=== PATIENT | female | born 2000 | race Caucasian/White ===

== ENCOUNTER 2019-01-02 18:04 | Emergency (ER) | payer OTHER ==
[2019-01-02] MEDS ORDERED: Albuterol 2.5 MG/3 ML NEB.SOL* (0.083%) INH ONE (19:42)
--- NOTE | 2019-01-02 19:48 | UC ---
Respiratory Complaint HPI - HPI Summary HPI Summary: 18-year-old female comes in with a chief complaint of difficulty taking a deep breath and feeling short of breath for 5 days. No wheezing. No upper respiratory tract infection symptoms. No calf pain no calf swelling.. No recent travel a prior history of DVT or pulmonary embolus. She does use a JUUL VAPE. She does feel some sternal pain is worse with palpation of her sternum. Patient reports occasional GERD symptoms but only when she's eating. Denies any GERD symptoms when she's waking up in the morning. - History of Current Complaint Chief Complaint: UCRespiratory Stated Complaint: CHEST CONGESTION Time Seen by Provider: 01/02/19 19:34 Hx Last Menstrual Period: IUD in place Pain Intensity: 0 - Allergies/Home Medications Allergies/Adverse Reactions: Allergies Allergy/AdvReac Type Severity Reaction Status Date / Time No Known Allergies Allergy Verified 01/02/19 18:39 Home Medications: Home Medications hydrOXYzine HCL TAB* [Atarax TAB 50 MG *] 50 mg PO DAILY 01/02/19 [History Confirmed 01/02/19] lamoTRIgine TAB(*) [LaMICtal TAB(*)] 200 mg PO DAILY 01/02/19 [History Confirmed 01/02/19] PMH/Surg Hx/FS Hx/Imm Hx Previously Healthy: Yes - Surgical History Surgical History: None - Family History Known Family History: Positive: Non-Contributory - Social History Alcohol Use: Weekly Substance Use Type: Marijuana Substance Use Comment - Amount & Last Used: occasionally Smoking Status (MU): Current Some Day Smoker Type: eCigarettes Review of Systems All Other Systems Reviewed And Are Negative: Yes Constitutional: Positive: Other - SEE HPI Skin: Positive: Negative Eyes: Positive: Negative ENT: Positive: Negative Respiratory: Positive: Shortness Of Breath, Other - SEE HPI Cardiovascular: Positive: Chest Pain - SEE HPI Gastrointestinal: Positive: Negative Motor: Positive: Negative Neurovascular: Positive: Negative Musculoskeletal: Negative: Calf Tenderness, Edema Neurological: Positive: Negative Psychological: Positive: Negative Is Patient Immunocompromised?: No Physical Exam Triage Information Reviewed: Yes Appearance: Well-Appearing, No Pain Distress, Well-Nourished Vital Signs: Initial Vital Signs Temp 98.7 F 01/02/19 18:33 Pulse 69 01/02/19 18:33 Resp 20 01/02/19 18:33 BP 97/61 09/24/19 18:33 Pulse Ox 100 01/02/19 18:33 Vital Signs Reviewed: Yes Eye Exam: Normal Eyes: Positive: Conjunctiva Clear ENT: Positive: Pharynx normal, TMs normal Neck: Positive: Supple Respiratory: Positive: Lungs clear, Normal breath sounds, No respiratory distress, Other: - Patient occasionally takes a deeper breath. Lungs are clear without any wheezing. Patient's not in any acute respiratory distress. Cardiovascular: Positive: RRR Musculoskeletal: Positive: Strength Intact, ROM Intact, No Edema - NO CALF TENDERNESS Neurological: Positive: Alert Psychological: Positive: Age Appropriate Behavior Skin Exam: Normal Respiratory Course/Dx - Course Course Of Treatment: I discussed the chest x-ray with the patient I do not see any acute disease process radiologist reading is pending. Patient reports the albuterol nebulizer helped some with her shortness of breath. Discussed the possibility of pulmonary embolus. Patient does not have any calf pain she is not on any estrogens she does not have a history of deep venous thrombosis. I recommended further evaluation in the emergency department to rule out pulmonary embolus. Patient's going to the emergency department by POV. Also treated with prednisone and albuterol for the possibility of bronchospasm. I recommended she stop using the VAPE. - Differential Dx/Diagnosis Provider Diagnosis: Shortness of breath Discharge ED - Sign-Out/Discharge Documenting (check all that apply): Patient Departure All imaging exams completed and their final reports reviewed: No - Discharge Plan Condition: Stable Disposition: HOME-RECOMMEND TO ED Prescriptions: predniSONE TAB* [Deltasone 20 MG TAB*] 40 mg PO DAILY #8 tab Patient Education Materials: Shortness of Breath (ED) Referrals: [facility] [Outside] Additional Instructions: GO DIRECTLY TO THE EMERGENCY DEPARTMENT FOR FURTHER EVALUATION AND CARE OF YOUR SHORTNESS OF BREATH AND TO ENSURE YOU DO NOT HAVE A PULMONARY EMBOLIS. - Billing Disposition and Condition Condition: STABLE Disposition: Home-Recommend to ED
[2019-01-02] MEDS ORDERED: predniSONE TAB* 20 MG PO ONE (20:24)
[2019-01-02] MEDS ORDERED: Albuterol HFA INHALER* 8 gm MDI INH ONE (20:24)
[2019-01-02 20:39] VITALS: BP 112/69
--- NOTE | 2019-01-03 10:18 | UC ---
- Progress Note Progress Note: Review of final x-ray report. IMPRESSION: No active cardiopulmonary disease is noted. Consistent with preliminary reading by provider. No change in POC. Course/Dx - Diagnoses Provider Diagnoses: Shortness of breath Discharge ED - Sign-Out/Discharge Documenting (check all that apply): Post-Discharge Follow Up All imaging exams completed and their final reports reviewed: Yes - Discharge Plan Condition: Stable Disposition: HOME-RECOMMEND TO ED Prescriptions: predniSONE TAB* [Deltasone 20 MG TAB*] 40 mg PO DAILY #8 tab Patient Education Materials: Shortness of Breath (ED) Referrals: [facility] [Outside] Additional Instructions: GO DIRECTLY TO THE EMERGENCY DEPARTMENT FOR FURTHER EVALUATION AND CARE OF YOUR SHORTNESS OF BREATH AND TO ENSURE YOU DO NOT HAVE A PULMONARY EMBOLIS. - Billing Disposition and Condition Condition: STABLE Disposition: Home-Recommend to ED
== END 2019-01-02 20:48 | disposition home health service (06) ==
LOC: UCCORT 18:04
DX: R06.02 Shortness of breath (principal); F17.290 Nicotine dependence, other tobacco product, uncomplicated
CPT/HCPCS: 71046; 99202; A9270-GY; G0463; J7512